=== PATIENT | female | born 1990 | race Two or more races ===

== ENCOUNTER 2023-05-31 10:28 | Inpatient (IN) | payer OTHER ==
[~2023-05-31] VITALS: Ht 160 cm; Wt 87.1 kg
[2023-06-03] MEDS ORDERED: PROTONIX40 M1 PO (11:02)
[2023-06-03] MEDS ORDERED: CARAFATE1 GM PO (11:02)
[2023-06-03] MEDS ORDERED: SINGULAIR10 MG PO (11:03)
[2023-06-03] MEDS ORDERED: PEPCID PO (11:05)
[2023-06-05] MEDS ORDERED: MAXIMUM D3325 MCG (11:25)
[2023-06-05] MEDS ORDERED: FAMOTIDINE40 MG (11:25)
[2023-06-05] MEDS ORDERED: NABUMETONE500 MG (11:26)
[2023-06-08] MEDS ORDERED: TRAM1TAB98 PO (09:09)
[2023-06-08] MEDS ORDERED: INTESTINEX680 M1 PO (09:09)
[2023-06-08] MEDS ORDERED: PEPCID AC20 MG PO (09:09)
== END 2023-06-08 10:10 | disposition home or self-care (01) | DRG 331 ==
LOC: SURH 06-05 05:40 → O/R 06-05 05:40 → SURG 06-05 09:15 → SURH 06-05 13:14 → SURG 06-05 14:15 → SURH 06-08 10:10
PROVIDERS: ADMIT Surgery; ATTEND Surgery
PROC: 0DTL4ZZ Resection of Transverse Colon, Percutaneous Endoscopic Approach (ICD-10-PCS; 2023-06-05)
PROC: 0DTM4ZZ Resection of Descending Colon, Percutaneous Endoscopic Approach (ICD-10-PCS; 2023-06-05)
PROC: 0DTN4ZZ Resection of Sigmoid Colon, Percutaneous Endoscopic Approach (ICD-10-PCS; 2023-06-05)
PROC: 0DBP8ZZ Excision of Rectum, Via Natural or Artificial Opening Endoscopic (ICD-10-PCS; 2023-06-05)
PROC: 3E0F7SF Introduction of Other Gas into Respiratory Tract, Via Natural or Artificial Opening (ICD-10-PCS; 2023-06-05)
PROC: 0DTF4ZZ Resection of Right Large Intestine, Percutaneous Endoscopic Approach (ICD-10-PCS; principal; 2023-06-05 14:15)
PROC: 3E0F7GC Introduction of Other Therapeutic Substance into Respiratory Tract, Via Natural or Artificial Opening (ICD-10-PCS; 2023-06-06)
DX: D12.0 Benign neoplasm of cecum (principal); D12.2 Benign neoplasm of ascending colon; D12.3 Benign neoplasm of transverse colon; D12.4 Benign neoplasm of descending colon; D12.5 Benign neoplasm of sigmoid colon; D12.8 Benign neoplasm of rectum; J45.20 Mild intermittent asthma, uncomplicated

== ENCOUNTER 2024-12-11 09:39 | Emergency (ER) | payer OTHER ==
[~2024-12-11] VITALS: Ht 160 cm; Wt 83.5 kg
[~2024-12-11 09:39] MED LIST: CARAFATE1 GM PO; FAMOTIDINE40 MG; INTESTINEX680 M1 PO; MAXIMUM D3325 MCG; NABUMETONE500 MG; PEPCID AC20 MG PO; PEPCID PO; PROTONIX40 M1 PO; SINGULAIR10 MG PO; TRAM1TAB98 PO
[2024-12-11] MEDS ORDERED: 0.9 % SODIUM CHLORIDE 1,000 ML IV STA (10:10)
[2024-12-11] MEDS ORDERED: BARIUM SULFATE 450 ML ORAL.SUSP PO ONE (10:37)
[2024-12-11 11:18] LABS: HEMATOCRIT 38.5 % (36.0-45.00); HEMOGLOBIN 12.6 g/dL (12.0-15.00); MEAN CELL VOLUME 73.3 fL (80.00-100.00); MEAN CORPUSCULAR HEMOGLOBIN 23.9 pg (27.00-32.0); MEAN CORPUSCULAR HGB CONC 32.7 g/dl (32.0-36.0); PLATELET COUNT 294 K/uL (150-450); RED BLOOD COUNT 5.25 M/uL (4.00-6.00); RED CELL DISTRIBUTION WIDTH 17.2 % (11.5-14.5)
[2024-12-11] MEDS ORDERED: KETOROLAC TROMETHAMINE 30 MG VIAL ONE (11:49)
[2024-12-11 11:57] LABS: CREATININE SERUM 0.69 mg/dL (0.55-1.02); GFR 96.27; POTASSIUM 3.69 mEq/L (3.5-5.1)
[2024-12-11] MEDS ORDERED: KETOROLAC TROMETHAMINE 30 MG VIAL IV ONE (12:00)
[2024-12-11 13:01] LABS: URINE APPEARANCE Turbid; URINE BILIRRUBIN Negative (NEGATIVE); URINE BLOOD Large; URINE COLOR Orange; URINE GLUCOSE Negative (NEGATIVE); URINE KETONE Trace (NEGATIVE); URINE LEUKOCYTE Negative; URINE NITRATE Negative; URINE PROTEIN Trace (NEGATIVE); URINE UROBILINOGEN 0.2 E.U./dl
[2024-12-11 13:05] LABS: URINE EPITHELIAL CELLS 17.2 uL (0.0-38.8); URINE WBC 19.9 uL (0.0-23.2)
[2024-12-11 13:15] LABS: URINE CAST 0.14 uL (0.0-1.40)
[2024-12-11] MEDS ORDERED: ONDANSETRON HCL 2 MG/ML VIAL IV STA (15:06)
[2024-12-11] MEDS ORDERED: ONDANSETRON HCL 2 MG/ML VIAL ONE (15:21)
[2024-12-11] MEDS ORDERED: MEPERIDINE HCL 25 MG/ML AMPUL IV SCH (15:45)
== END 2024-12-11 17:52 | disposition home or self-care (01) ==
LOC: ER 09:41
PROVIDERS: Emergency Medicine
DX: K52.89 Other specified noninfective gastroenteritis and colitis (principal); R10.9 Unspecified abdominal pain
CPT/HCPCS: 36415; 74177; Q9965